=== PATIENT | female | born 1990 | race African-American/Black ===

== ENCOUNTER 2016-05-02 23:49 | Inpatient (IN) | payer OTHER ==
[~2016-05-02] VITALS: Ht 162.6 cm; Wt 69.2 kg
[2016-05-03 00:14] VITALS: BP 119/79; PULSE 106; RESP 20; Ht 162.6 cm; Wt 69.2 kg
[2016-05-03] MEDS ORDERED: FERR325C PO (00:18)
[2016-05-03] MEDS ORDERED: CALC600T5 PO (00:18)
[2016-05-03] MEDS ORDERED: PREN1TAB13 PO (00:18)
--- NOTE | 2016-05-03 02:05 | TRIAGE ---
OB Triage Datetime Report Generated by CPN: 05/03/2016 02:04 Datetime: 05/03/2016 01:48 Stage of : Antepartum Assessment Type: Admission Assessment Vaginal Bleeding: None Maternal Assessment Level of Consciousness: Fully Conscious Headache: Denies Blurred Vision: No Respiratory Effort: Unlabored; Regular Rhythm; Equal Expansion Breath Sounds, Left: Clear and Equal Breath Sounds, Right: Clear and Equal Nausea/Vomiting: Denies RUQ Epigastric Pain: Denies Lower Extremities Edema: Bilateral Lower Extremities Degree: 1+ Facial Edema: None Fall Risk Assessment History of Falling: (0) No Secondary Diagnosis: (0) No Ambulatory Aid: (0) Bedrest/Nurse Assist IV Therapy: (0) No Gait: (0) Normal/Bedrest/Immobile Mental Status: (0) Oriented to Own Ability Fall Score: 0 Fall Risk Score Definition: No Risk: No action required Membrane Status: Intact Datetime: 05/03/2016 01:47 Time of Arrival: 05/03/2016 01:30 EGA: 37.6 Arrived By: Ambulatory Datetime: 05/03/2016 00:30 Labor Evaluation Frequency: NONE Monitor Mode: External Duration (sec)2399: NONE Pattern: Normal: <= 5 Contractions in 10 Minutes Heart Rate FHR Baseline Rate: 145 Monitor Mode: External US FHR Baseline Changes: No Baseline Change Variability: Moderate 6-25 bpm Accelerations: 15X15 Datetime: 05/03/2016 00:07 Assessment Type: Triage Maternal Assessment Level of Consciousness: Fully Conscious Headache: Denies Blurred Vision: No Respiratory Effort: Unlabored; Regular Rhythm; Equal Expansion Breath Sounds, Left: Clear and Equal Breath Sounds, Right: Clear and Equal Nausea/Vomiting: Denies RUQ Epigastric Pain: Denies Lower Extremities Edema: Bilateral Lower Extremities Degree: 1+ Facial Edema: None Fall Risk Assessment History of Falling: (0) No Secondary Diagnosis: (0) No Ambulatory Aid: (0) Bedrest/Nurse Assist IV Therapy: (0) No Gait: (0) Normal/Bedrest/Immobile Mental Status: (0) Oriented to Own Ability Fall Score: 0 Fall Risk Score Definition: No Risk: No action required Datetime: 05/03/2016 00:01 Time of Arrival: 05/02/2016 23:44 EGA: 37.6 Arrived By: Wheelchair Arrived From: Home Chief Complaint: low platelets Movement: Present Contractions: Denies/Absent Contractions: 0 Rupture of Membranes: Denies Vaginal Bleeding: None Vaginal Discharge: Denies Recent Sexual Intercouse: Denies Abdominal Trauma: Not Applicable Patient Complaints: Other Time Provider Notified: 05/03/2016 01:16 Provider Notified: SALCEDA Initial Plan: efm, call ob for orders Pain Assessment Pain Presence: None/Denies Vaginal Exam Dilatation (cms): 1.0 Effacement (%): 50 Station: -2 Exam By: jacquie Vaginal Bleeding: None Cervix, Consistency: Moderate Cervix, Position: Midposition Presentation 'A': Cephalic
[2016-05-03 02:24] LABS: ADD SCAN DIFF NO
[2016-05-03 02:25] LABS: BASOPHILS % 0.1 % (0.0-2.0); EOSINOPHILS % 0.2 % (0.0-7.0); HEMATOCRIT 32.3 % (37.0-47.0); LYMPHOCYTES % 12.4 % (15.0-51.0); MEAN CORPUSCULAR HGB CONC 34.1 g/dl (32.0-37.0); MEAN PLATELET VOLUME 11.7 fl (7.4-10.4); MONOCYTES % 4.6 % (0.0-11.0); NEUTROPHIL # 7.3 10^3/ul (1.6-7.5); NEUTROPHILS % 82.3 % (39.0-77.0); PLATELET COUNT 72 10^3/UL (140-415); RED BLOOD COUNT 3.55 10^6/ul (4.20-5.40); RED CELL DISTRIBUTION WIDTH 13.7 % (11.5-14.5); WHITE BLOOD COUNT 8.9 10^3/ul (4.8-10.8)
[2016-05-03 02:26] LABS: ABNORMAL IP MESSAGE 1; LYMPHOCYTES # 1.1 10^3/ul (0.8-2.9); MONOCYTE # 0.4 10^3/ul (0.3-0.9)
[2016-05-03 02:36] LABS: INR 0.92; PARTIAL THROMBOPLASTIN TIME 28.1 Sec (25.0-35.0); PROTIME 12.4 Sec (12.2-14.2)
[2016-05-03 02:37] LABS: ALBUMIN 3.3 g/dl (3.3-4.9); POTASSIUM 3.9 mmol/L (3.5-5.1)
[2016-05-03 02:40] LABS: ALBUMIN/GLOBULIN RATIO 0.78; BILIRUBIN,INDIRECT 0.1 mg/dl (0-1.1); BILIRUBIN,TOTAL 0.1 mg/dl (0.2-1.3); CREATININE 0.63 mg/dl (0.44-1.00); TOTAL PROTEIN 7.5 g/dl (6.1-8.1)
[2016-05-03 02:41] LABS: CALCIUM 9.3 mg/dl (8.4-10.2)
[2016-05-03] MEDS: OXYTOCIN 30 UNITS/LR 500 ML IV SCH ×2 (07:00→17:45)
[2016-05-03] MEDS ORDERED: OXYTOCIN 30 UNITS/LR 500 ML BAG IV ONE (07:00)
[2016-05-03] MEDS ORDERED: METHYLERGONOVINE 0.2 MG INJ ONE (07:00)
[2016-05-03] MEDS ORDERED: CARBOPROST 250 MCG INJ ONE (07:00)
[2016-05-03] MEDS: MULTIVIT/MIN/FOLATE/IRON/PREN TAB PO SCH (08:40)
[2016-05-03] MEDS: FERROUS SULFATE (EC) 325 MG TAB PO SCH (08:40)
[2016-05-03] MEDS ORDERED: LACTATED RINGER'S 1,000 ML IV SCH (11:30)
[2016-05-03] MEDS ORDERED: METHYLPREDNISOLONE 125 MG INJ IV ONE (11:30)
[2016-05-03] MEDS ORDERED: CARBOPROST 250 MCG INJ IM PRN ×2 (13:00→16:00)
[2016-05-03] MEDS ORDERED: CITRIC ACID/NA CITRATE 30 ML CUP PO ONE (13:00)
[2016-05-03] MEDS ORDERED: METHYLERGONOVINE 0.2 MG INJ IM PRN ×2 (13:00→16:00)
[2016-05-03] MEDS ORDERED: CEFAZOLIN 2 GM/50 ML (PMX) 50 ML IV SCH (13:00)
[2016-05-03] MEDS ORDERED: MISOPROSTOL 200 MCG TAB PR PRN ×2 (13:00→16:00)
[2016-05-03] MEDS ORDERED: OXYTOCIN 30 UNITS/LR 500 ML IV PRN ×2 (13:00→16:00)
[2016-05-03] MEDS ORDERED: PROPOFOL 20 ML ONE (13:43)
[2016-05-03] MEDS ORDERED: SUCCINYLCHOLINE CHLORIDE 100 MG/5 ML SYG IV ONE (13:43)
[2016-05-03] MEDS ORDERED: ONDANSETRON 4 MG INJ ONE (13:45)
[2016-05-03] MEDS ORDERED: METOCLOPRAMIDE 10 MG INJ ONE (13:45)
[2016-05-03] MEDS ORDERED: CEFAZOLIN 1 GM INJ ONE (14:27)
[2016-05-03] MEDS ORDERED: HYDROmorphONE 2 MG/ML SYG ONE (14:41)
[2016-05-03] MEDS ORDERED: MEPERIDINE 25 MG INJ IV PRN (15:00)
[2016-05-03] MEDS ORDERED: NALOXONE (0.4 MG/ML) INJ IV PRN (15:00)
[2016-05-03] MEDS ORDERED: HYDROmorphONE (0.2 MG/ML) 10ML SYG IV PRN ×3 (15:00)
[2016-05-03] MEDS ORDERED: METOCLOPRAMIDE 10 MG INJ IV PRN (15:00)
[2016-05-03] MEDS ORDERED: OXYCODONE/ACETAMINOPHEN (5/325) TAB PO PRN ×2 (15:00→16:00)
[2016-05-03] MEDS ORDERED: HYDROmorphONE 1 MG/ML SYG IV PRN ×2 (15:00)
[2016-05-03] MEDS ORDERED: DIPHENHYDRAMINE 50 MG INJ IV PRN (15:00)
[2016-05-03] MEDS ORDERED: ONDANSETRON 4 MG INJ IV PRN ×2 (15:00)
[2016-05-03] MEDS ORDERED: HYDROmorphONE 0.2 MG/ML PCA IV SCH (15:00)
--- NOTE | 2016-05-03 15:00 | CONS ---
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 The i nfant is also reported to have intrauterine growth restriction. She is currently at 37-6/7 weeks. Her platelet count currently is 72,000 as of this morning. Her lowest platelet count during pregnan cy was noted to be 61,000 on 01/31/2016. Per mom, she has never underwent a platelet transfusion. I spoke at length with mom regarding complications associated with delivery of infants born to mom w ith ITP. I discussed that approximately 10% to 15% of the infants may have thrombocytopenia which m ay require intervention. Discussed with mom plan of care post-delivery. We will perform a cord blo od or venous blood platelet count after the is born. If the infant's platelet count appears to be in the thrombocytopenic range, this may require intervention, then we would admit the infant t o NICU. Otherwise, we will continue to monitor serial platelet counts. Thank you for allowing me to participate in the care of this family. If any further questions arise , please do not hesitate to contact us. Dictated By: WALT MARIN MD, AM/JOHN Conf#: [id number] DID#: [id number]
[2016-05-03] MEDS ORDERED: ROPIVACAINE 0.5 % 30 ML VIAL ONE (15:06)
--- NOTE | 2016-05-03 15:16 | PREOPHP ---
DATE OF ADMISSION: 05/03/2016 HISTORY OF PRESENT ILLNESS: This is a 26-year-old lady, 1, and her EDC is 05/18/2016, at 37 -6/7 weeks admitted to labor and delivery area for delivery. [facility], and the care was complicated by chronic idiopathic thrombocytopenic purpura. She had been followed by her traffic control technician, Dr. Lopez, and he had given his recommendation of delivery. This patient was admitted this morning, and Dr. Araya had seen her. The platelets that were about 70,000 ____, and she wanted the patient to be delivered as soon as possible, so the patient was misael eduled to have as the cervix was closed and thick and the station was -3. The plans were explained to the patient, and she understood everything totally, and also [facility] The risks, benefits and alternatives were discussed with them. The patient had 2 packs of p latelets ready to be given as part of the and then also to be given Solu-Medrol as part of the delivery 120 mg IV. She will have platelets be repeated in recovery room, and Dr. Araya advise d that if the platelets are going up, then no more platelets to be transfused, but if it goes down i n recovery room, then she advised to have another pack to be given and to have platelet count done e very 4 hours for the next 24 hours. She also had cryoprecipitate ordered 20 units. The nurse in an tepartum was aware of all these orders as well as I spoke to the anesthesiologist. Anesthesiologist wanted to wait until 5:00 because she ate at 9:00, but since this patient has good platelets at thi s time, Dr. Araya likes to have the done as soon as we can, so that I explained to the [facility], and she agreed to it and also the anesthesiologist. [facility] PAST PERSONAL HISTORY: No history of TB, asthma. ALLERGIES: NO ALLERGIES. SOCIAL HISTORY: The patient does not smoke. She does not drink. MEDICATIONS: She does not take any drugs except her iron and vitamins. GYNECOLOGICAL HISTORY: She had menarche at the age of 10, every 28 days interval, 3 to 4 days durat ion and moderate in amount. FAMILY HISTORY: Positive for colon cancer on father's side. Positive lung cancer from mother's darrian e. SURGICAL HISTORY: She had an ovarian cyst removed by laparoscopy. REVIEW OF SYSTEMS: CARDIOVASCULAR: No chest pains. RESPIRATORY: No cough. GASTROINTESTINAL: No diarrhea, no vomiting. GENITOURINARY: No dysuria. PHYSICAL EXAMINATION: GENERAL: A conscious, coherent lady in not acute distress. VITAL SIGNS: Her blood pressure 120/80, pulse rate 80 per minute, respirations 16 per minute. BREASTS, HEART AND LUNGS: Within normal limits. ABDOMEN: Soft. Fundic height 35 cm. heart tones 140 per minute. PELVIC: The cervix closed, station floating in cephalic presentation with the bag of water intact. EXTREMITIES: No pedal edema. ADMITTING DIAGNOSIS: A 37-6/7-week intrauterine with chronic idiopathic thrombocytopenic purpura. The plans were explained as above. Dictated By: NICOLE BAÑUELOS/JOHN Conf#: [id number] DID#: [id number]
[2016-05-03] MEDS ORDERED: METHYLERGONOVINE 0.2 MG TAB PO PRN (16:00)
[2016-05-03] MEDS ORDERED: LANOLIN 7 GM TUBE TOP PRN (16:00)
[2016-05-03] MEDS ORDERED: ACETAMINOPHEN/CODEINE #3 TAB PO PRN ×2 (16:00)
[2016-05-03 16:21] LABS: ADD SCAN DIFF NO
[2016-05-03 16:25] LABS: ABNORMAL IP MESSAGE 1; BASOPHILS % 0.1 % (0.0-2.0); EOSINOPHILS % 0.1 % (0.0-7.0); HEMATOCRIT 33.6 % (37.0-47.0); HEMOGLOBIN 11.4 g/dl (12.0-16.0); LYMPHOCYTES # 0.9 10^3/ul (0.8-2.9); LYMPHOCYTES % 7.6 % (15.0-51.0); MEAN CORPUSCULAR HEMOGLOBIN 31.1 pg (29.0-33.0); MEAN CORPUSCULAR HGB CONC 33.9 g/dl (32.0-37.0); MEAN CORPUSCULAR VOLUME 91.8 fl (82.0-101.0); MEAN PLATELET VOLUME 11.1 fl (7.4-10.4); MONOCYTE # 0.3 10^3/ul (0.3-0.9); NEUTROPHILS % 89.5 % (39.0-77.0); PLATELET COUNT 94 10^3/UL (140-415); RED BLOOD COUNT 3.66 10^6/ul (4.20-5.40); WHITE BLOOD COUNT 12.2 10^3/ul (4.8-10.8)
[2016-05-03 20:01] LABS: BARBITURATES Negative (NEGATIVE); BENZODIAZEPINES Negative (NEGATIVE)
[2016-05-03 20:02] LABS: CANNABINOIDS Negative (NEGATIVE)
[2016-05-03 20:03] LABS: COCAINE Negative (NEGATIVE); OPIATES Positive (NEGATIVE)
[2016-05-03] MEDS: HYDROmorphONE 1 MG/ML SYG IV PRN (20:22)
[2016-05-03 20:30] VITALS: BP 131/84; PULSE 89; RESP 18
[2016-05-03] MEDS: IBUPROFEN 800 MG TAB PO SCH (22:00)
[2016-05-03] MEDS: LACTATED RINGER'S 1,000 ML IV SCH (22:00)
[2016-05-03] MEDS ORDERED: CEFAZOLIN 1 GM/50 ML (PMX) 50 ML IVPB ONE (23:00)
[2016-05-04] VITALS: BP 117/75; PULSE 88; RESP 18
[2016-05-04] MEDS: HYDROmorphONE 1 MG/ML SYG IV PRN ×4 (02:37→13:04)
[2016-05-04 04:00] VITALS: BP 111/71; PULSE 82; RESP 18
[2016-05-04 04:51] LABS: ADD SCAN DIFF NO
[2016-05-04 04:56] LABS: ABNORMAL IP MESSAGE 1; BASOPHILS % 0.1 % (0.0-2.0); HEMATOCRIT 26.6 % (37.0-47.0); LYMPHOCYTES # 1.2 10^3/ul (0.8-2.9); LYMPHOCYTES % 13.5 % (15.0-51.0); MEAN CORPUSCULAR HGB CONC 33.8 g/dl (32.0-37.0); MEAN CORPUSCULAR VOLUME 91.7 fl (82.0-101.0); MONOCYTE # 0.5 10^3/ul (0.3-0.9); MONOCYTES % 5.7 % (0.0-11.0); NEUTROPHIL # 7.3 10^3/ul (1.6-7.5); NEUTROPHILS % 80.3 % (39.0-77.0); PLATELET COUNT 99 10^3/UL (140-415); RED CELL DISTRIBUTION WIDTH 13.8 % (11.5-14.5); WHITE BLOOD COUNT 9.1 10^3/ul (4.8-10.8)
[2016-05-04 05:15] LABS: POTASSIUM 4.1 mmol/L (3.5-5.1)
[2016-05-04 05:18] LABS: CREATININE 0.55 mg/dl (0.44-1.00)
[2016-05-04 05:19] LABS: CALCIUM 8.4 mg/dl (8.4-10.2)
[2016-05-04] MEDS: LACTATED RINGER'S 1,000 ML IV SCH ×3 (05:52→15:47)
[2016-05-04] MEDS: IBUPROFEN 800 MG TAB PO SCH ×3 (06:00→21:58)
--- NOTE | 2016-05-04 06:15 | OPR ---
DATE OF OPERATION: 05/03/2016 PREOPERATIVE DIAGNOSIS: 37 and 6/7 weeks intrauterine with chronic idiopathic thrombocyto penic purpura. POSTOPERATIVE DIAGNOSIS: 37 and 6/7 weeks intrauterine with chronic idiopathic thrombocyt openic purpura. OPERATION PERFORMED: Primary low transverse section. SURGEON: Nicole Crooks MD MECHANICAL ENGINEERING DIRECTOR: Rose Michel DO ANESTHESIA: General. OPERATIVE TECHNIQUE: The patient was prepped and draped in the usual fashion for abdominal surgery. Prior to surgery, Solu-Medrol 150 mg IV was given. Then platelets, 1 pack, were started. Then th e patient was prepped and draped in the usual fashion for abdominal surgery. Then, under general an esthesia with endotracheal intubation, a Pfannenstiel incision about 10 cm skin incision was perform ed. The incision was carried from the skin up to the fascia. Upon opening the skin up to the fasci a, small blood vessels were noted to be oozing, and these were all cauterized. Fascia was opened tr ansversely followed by splitting the muscles vertically and the peritoneum vertically. Upon opening the abdominal cavity, the bladder blade was put in place. A small ranulfo was performed from the sero sa up to the endometrium, and the ranulfo was carried sideways with the aid of my 2 fingers. My left h and was inserted in the lower segment of the uterus, and the bag of water was ruptured; 2+ meconium stained amniotic fluid was noted. Then, the baby's head was tried to be delivered with good fundal pressure but with difficulty, so the vacuum was applied twice. The first one popped off, and the se cond one, after 2 seconds, delivered the baby's head. There was 1 loop of tight cord around the bab y's neck that needed to be released prior to the delivery of the rest of the body of the baby. Baby 's airways were quickly suctioned with amniotic fluid cord segment. The cord was clamped, and the b long was handed to the NICU team. Cord segment was obtained for blood gases. Cord blood was obtaine d. The placenta was delivered manually and complete. The uterus was exteriorized. The uterus was hypotonic after the baby was born. Pitocin was run fast. Methergine was given, and Hemabate was gi eulalia intramuscular in the uterus. Then the uterus contracted. Then the uterus was cleansed with wet lap sponge to make sure that no membranes were left behind. After correct sponge count, the uterus was closed in the usual fashion using #1 chromic for the first layer; continuous locking sutu re was used followed by #1 chromic for the second layer. Imbricating sutures were used. Bleeders w ere checked, and there was no bleeding noted. After checking for any bleeders in which there were n one, both tubes and ovaries were inspected, and they were healthy looking. The back of the uterus w as checked for any hematoma, and there was none noted. Then the uterus was put back to the pelvic c avity. Once again, uterine incision was checked for any bleeders, and there was no bleeding noted. After correct sponge count, needle count, and instrument count, and after checking the incision in which there were none, after the count was confirmed by the technical aide and color printer operator, the abdomen w as closed in the usual fashion using 0 Vicryl for the peritoneum, 0 Vicryl for the muscles, for the fascia, 0 Vicryl continuous stitch was used followed by few [id number] sutures. For the subcut aneous tissue, it was closed with 3-0 Vicryl, and the skin was closed with 3-0 Vicryl. Subcuticular suture was used. The patient tolerated the procedure well. Estimated blood loss about 800 mL. Vi rodger signs were stable during and after the procedure. She delivered a healthy baby boy, Apgars 9 an d 9 at 1443 p.m. on 05/03/2016, weighing 4 pounds 13 ounces, 2190 grams, 18 inches long. Dictated By: NICOLE BAÑUELOS/JOHN Conf#: [id number] DID#: [id number]
[2016-05-04 08:00] VITALS: BP 113/72; PULSE 104
[2016-05-04] MEDS: FERROUS SULFATE (EC) 325 MG TAB PO SCH (08:49)
[2016-05-04] MEDS: MULTIVIT/MIN/FOLATE/IRON/PREN TAB PO SCH (08:49)
[2016-05-04] MEDS ORDERED: MAGNESIUM HYDROXIDE 30ML CUP PO ONE (15:30)
[2016-05-04] MEDS ORDERED: BISACODYL 10 MG SUPP PR ONE (15:30)
[2016-05-04] MEDS: OXYCODONE/ACETAMINOPHEN (5/325) TAB PO PRN ×2 (15:42→20:11)
[2016-05-04 16:00] VITALS: BP 132/83; PULSE 95
[2016-05-04 20:11] VITALS: BP 119/78; PULSE 85; RESP 18
[2016-05-05] MEDS ORDERED: MAGNESIUM HYDROXIDE 30ML CUP PO ONE (00:01)
[2016-05-05] MEDS ORDERED: BISACODYL 10 MG SUPP PR ONE (00:01)
[2016-05-05] MEDS: OXYCODONE/ACETAMINOPHEN (5/325) TAB PO PRN ×5 (03:18→20:25)
[2016-05-05 03:55] VITALS: BP 118/78; PULSE 83; RESP 20
[2016-05-05] MEDS: IBUPROFEN 800 MG TAB PO SCH ×3 (06:01→22:43)
[2016-05-05 07:33] LABS: ADD SCAN DIFF NO
[2016-05-05 07:39] LABS: BASOPHILS % 0.2 % (0.0-2.0); EOSINOPHILS % 0.5 % (0.0-7.0); HEMATOCRIT 26.3 % (37.0-47.0); HEMOGLOBIN 8.7 g/dl (12.0-16.0); LYMPHOCYTES # 0.9 10^3/ul (0.8-2.9); LYMPHOCYTES % 14.9 % (15.0-51.0); MEAN CORPUSCULAR HGB CONC 33.1 g/dl (32.0-37.0); MEAN CORPUSCULAR VOLUME 93.6 fl (82.0-101.0); MEAN PLATELET VOLUME 10.5 fl (7.4-10.4); MONOCYTE # 0.3 10^3/ul (0.3-0.9); NEUTROPHIL # 4.9 10^3/ul (1.6-7.5); NEUTROPHILS % 79.9 % (39.0-77.0); PLATELET COUNT 103 10^3/UL (140-415); RED BLOOD COUNT 2.81 10^6/ul (4.20-5.40); RED CELL DISTRIBUTION WIDTH 14.2 % (11.5-14.5); WHITE BLOOD COUNT 6.2 10^3/ul (4.8-10.8)
[2016-05-05] MEDS: LACTATED RINGER'S 1,000 ML IV SCH ×2 (07:47→15:47)
[2016-05-05 07:52] LABS: POTASSIUM 3.7 mmol/L (3.5-5.1)
[2016-05-05 07:55] LABS: CREATININE 0.68 mg/dl (0.44-1.00)
[2016-05-05 07:56] LABS: CALCIUM 8.8 mg/dl (8.4-10.2)
[2016-05-05 08:15] VITALS: BP 114/71; PULSE 79; RESP 18
[2016-05-05] MEDS: FERROUS SULFATE (EC) 325 MG TAB PO SCH (08:45)
[2016-05-05] MEDS: MULTIVIT/MIN/FOLATE/IRON/PREN TAB PO SCH (08:45)
[2016-05-05 15:25] VITALS: BP 119/78; PULSE 88; RESP 18
[2016-05-05 21:16] VITALS: BP 122/79; PULSE 80; RESP 18
[2016-05-06] MEDS: OXYCODONE/ACETAMINOPHEN (5/325) TAB PO PRN ×3 (00:37→09:28)
[2016-05-06 05:34] VITALS: BP 126/73; PULSE 89; RESP 18
[2016-05-06] MEDS: IBUPROFEN 800 MG TAB PO SCH (06:04)
[2016-05-06 06:16] LABS: ADD SCAN DIFF NO
[2016-05-06] MEDS: LACTATED RINGER'S 1,000 ML IV SCH (06:23)
[2016-05-06 06:24] LABS: BASOPHILS % 0.2 % (0.0-2.0); EOSINOPHILS # 0.1 10^3/ul (0.0-0.5); EOSINOPHILS % 1.7 % (0.0-7.0); HEMOGLOBIN 8.5 g/dl (12.0-16.0); LYMPHOCYTES # 1.1 10^3/ul (0.8-2.9); LYMPHOCYTES % 19.6 % (15.0-51.0); MEAN CORPUSCULAR HGB CONC 32.7 g/dl (32.0-37.0); MEAN CORPUSCULAR VOLUME 94.9 fl (82.0-101.0); MEAN PLATELET VOLUME 10.6 fl (7.4-10.4); MONOCYTE # 0.3 10^3/ul (0.3-0.9); MONOCYTES % 5.7 % (0.0-11.0); NEUTROPHIL # 4.1 10^3/ul (1.6-7.5); NEUTROPHILS % 71.9 % (39.0-77.0); PLATELET COUNT 114 10^3/UL (140-415); RED BLOOD COUNT 2.74 10^6/ul (4.20-5.40); WHITE BLOOD COUNT 5.8 10^3/ul (4.8-10.8)
[2016-05-06 07:45] VITALS: BP 125/81; PULSE 75; RESP 19
[2016-05-06] MEDS ORDERED: MEASLES,MUMPS,RUBELLA VACCINE INJ SC* ONE (09:00)
[2016-05-06] MEDS ORDERED: DIPHTH/TET/ACEL PERTUSS (ADULT) 0.5 ML VIAL IM* ONE (09:00)
[2016-05-06] MEDS: MULTIVIT/MIN/FOLATE/IRON/PREN TAB PO SCH (09:27)
[2016-05-06] MEDS: FERROUS SULFATE (EC) 325 MG TAB PO SCH (09:27)
--- NOTE | 2016-05-08 05:48 | PN ---
DATE: 05/04/2016 SUBJECTIVE: The patient complains of incisional pain. She has good urine output and good gas per r ectum. No bowel movement yet. OBJECTIVE VITAL SIGNS: She is afebrile. Vital signs stable. CHEST: Lungs are clear. Breasts not engorged. ABDOMEN: Soft. Wound dry and clean. Lochia normal. EXTREMITIES: No calf tenderness. ASSESSMENT AND PLAN: Post day #1. Plan as ordered and started on clear liquid diet and a dvance diet as tolerated. Her platelets have been increasing and stable. We have to repeat CBC bianca xochilt. Dictated By: NICOLE BAÑUELOS/NTS Conf#: [id number] DID#: [id number]
--- NOTE | 2016-05-08 05:53 | PN ---
DATE: 05/05/2016 SUBJECTIVE: The patient feels better with less incisional pain. She has good urine output and good bowel movement. OBJECTIVE: VITAL SIGNS: She is afebrile. Vital signs are stable. LUNGS: Clear. BREASTS: Not engorged. ABDOMEN: Soft, warm, dry, and clean. Lochia normal. EXTREMITIES: No calf tenderness. ASSESSMENT: Post #2. Platelets were noted to be stable, and her platelet count on 2016 was 103. Her hemoglobin and hematocrit are stable at 8.7 grams of hemoglobin and 26.3 grams of hematocrit. PLAN: The patient will go home tomorrow. She will continue to take her iron 325 mg p.o. 3 times a day. Diet was advised. She was told to take pain medication. FINAL DIAGNOSIS: 37 and 6/7 weeks intrauterine , delivered with idiopathic thrombocytopeni c purpura and anemia. Dictated By: NICOLE BAÑUELOS/JOHN Conf#: [id number] DID#: [id number]
--- NOTE | 2016-05-08 23:21 | DS ---
DATE OF ADMISSION: 05/03/2016 DATE OF DISCHARGE: 05/06/2016 REASON FOR ADMISSION: This is a 26-year-old lady, 1, para 0, EDC 05/18/2016, at 37 and 6/7 weeks' , admitted to labor and delivery area for delivery. HISTORY OF PRESENT ILLNESS: See dictated history and physical. PHYSICAL EXAMINATION: See dictated history and physical. ADMITTING DIAGNOSIS: A 37 and 6/7 weeks intrauterine with chronic idiopathic thrombocytop enic purpura and anemia. HOSPITAL COURSE: The patient had a primary section per patient request. She tolerated the procedure well. The histology assistant was Dr. Dumont and Dr. Michel. She tolerated the procedure well. She received 1 unit of platelets and high dose of Solu-Medrol prior to the delivery. The platelets were noted to be stable and had increased after the 1 unit of platelets. The diet was advanced fro m liquid to general diet. She was discharged home. The patient felt good on the first, and the sec ond, and the third days. She was discharged home on the third postoperative day on gener al diet and activity was restricted. She was told to come to the clinic in 2 weeks. She was told t o continue to take her iron and vitamins at home. She was given prescription for pain. The patient was counseled and instructed. FINAL DIAGNOSIS: A 37 and 6/7 weeks intrauterine with idiopathic thrombocytopenic purpura and anemia. Dictated By: NICOLE MEJÍA MD NS/NTS Conf#: [id number] DID#: [id number] CC: NICOLE MEJÍA MD;*EndCC*
== END 2016-05-06 12:30 | disposition home or self-care (01) | DRG 765 ==
LOC: L-D 23:49 → OBT 23:49 → OBG 05-03 01:20 → L-D 05-03 14:09 → PP1 05-03 20:26
PROVIDERS: ADMIT Obstetrics & Gynecology; ATTEND Obstetrics & Gynecology
PROC: 30233R1 Transfusion of Nonautologous Platelets into Peripheral Vein, Percutaneous Approach (ICD-10-PCS; 2016-05-03)
PROC: 10D00Z1 Extraction of Products of Conception, Low, Open Approach (ICD-10-PCS; principal; 2016-05-03 14:00)
DX: O99.12 Other diseases of the blood and blood-forming organs and certain disorders involving the immune mechanism complicating childbirth (principal); D69.3 Immune thrombocytopenic purpura; Z3A.37 37 weeks gestation of pregnancy; Z37.0 Single live birth
CPT/HCPCS: 36430; 80048; 80053; 80307; 85025; 85049; 85610; 85730; 86592; 86644; 86850; 86900; 86901; 86945; 90715; 94760; 99464; G0463; J0330; J0690; J1170; J2210; J2405; J2590; J2765; J2795; J2930; J7120; P9035